=== PATIENT | male | born 1960 | race Caucasian/White ===

== ENCOUNTER 2018-01-28 15:11 | Emergency (ER) | payer OTHER ==
[~2018-01-28] VITALS: Ht 185.4 cm; Wt 129.1 kg
[2018-01-28] MEDS ORDERED: LIDODERM 5% P1 PATCH TD (17:20)
[2018-01-28] MEDS ORDERED: FLEXERIL10 MG PO (17:20)
[2018-01-28] MEDS ORDERED: MOTRIN800 MG PO (17:20)
[2018-01-28 18:18] VITALS: BP 146/83
== END 2018-01-28 18:18 | disposition home or self-care (01) ==
LOC: EME 15:11
DX: S29.012A Strain of muscle and tendon of back wall of thorax, initial encounter (principal); M48.54XA Collapsed vertebra, not elsewhere classified, thoracic region, initial encounter for fracture; W18.30XA Fall on same level, unspecified, initial encounter; I10 Essential (primary) hypertension; Z87.820 Personal history of traumatic brain injury; Z86.69 Personal history of other diseases of the nervous system and sense organs
CPT/HCPCS: 71046; 72070; 99281; 99283

== ENCOUNTER 2018-02-10 12:28 | Inpatient (IN) | payer OTHER ==
[~2018-02-10] VITALS: Ht 185.4 cm; Wt 135.7 kg
[2018-02-10] VITALS (8 sets, daily range): BP systolic 123–156; BP diastolic 73–86
[~2018-02-10 12:28] MED LIST: FLEXERIL10 MG PO; LIDODERM 5% P1 PATCH TD; MOTRIN800 MG PO
[2018-02-10 15:50] LABS: BASOPHIL (%) 0 % (0-1); EOSINOPHIL (%) 5.4 % (0-5); EOSINOPHIL COUNT 0.2 K/uL (0-0.3); HEMATOCRIT 19.1 % (38.0-50.0); HEMOGLOBIN 5.7 G/DL (12.5-16.6); LYMPHOCYTE COUNT 1.2 K/uL (1.0-2.8); MCH 26.4 PG (29.0-34.0); MCHC 29.8 G/DL (30.0-36.0); MCV 88.4 FL (86-99); MONOCYTE (%) 10.3 % (3-12); MONOCYTE COUNT 0.4 K/uL (0-0.8); NEUTROPHIL (%) 52.3 % (45-76); PLATELET COUNT 69 K/uL (156-360); RBC DIS.WIDTH-CV 25.3 % (11.8-14.6); RBC DIS.WIDTH-SD 80.4 % (39-53); RED BLOOD COUNT 2.16 M/uL (4.00-5.50); WHITE BLOOD COUNT 3.9 K/uL (4.1-10.2)
[2018-02-10 15:51] LABS: ALBUMIN 2.9 g/dL (3.2-4.8); CHLORIDE 104 mEq/L (99-109); POTASSIUM 5.8 mEq/L (3.7-5.4); SODIUM 138 mEq/L (136-147)
[2018-02-10 15:53] LABS: INTER. NORMALIZED RATIO 1.3
[2018-02-10 15:54] LABS: GLUCOSE 100 mg/dL (70-99); TOTAL PROTEIN > 12.3 g/dL (6.4-8.3)
[2018-02-10 15:56] LABS: PTT 27.5 SEC (25-37); TOTAL BILIRUBIN 0.3 mg/dL (0.0-1.0)
[2018-02-10 15:57] LABS: ALKALINE PHOSPHATASE 121 IU/L (3-129)
[2018-02-10 15:58] LABS: CREATININE 12.9 mg/dL (0.6-1.3); GFR ESTIMATE (CALCULATED) 4 mL/min/ (58.99-99999)
[2018-02-10 15:59] LABS: AST (GOT) 7 IU/L (2-34)
[2018-02-10 16:00] LABS: ALT (GPT) 6 IU/L (3-49)
[2018-02-10 16:01] LABS: LIPASE 100 U/L (1.0-51.0)
[2018-02-10 16:08] LABS: UREA NITROGEN (BUN) 123 mg/dL (9-23)
[2018-02-10 16:46] LABS: TROP-I INTERPRETATION NEGATIVE; TROPONIN-I 0.02 ng/mL (0.0-0.30)
[2018-02-10 19:56] LABS: APPEARANCE SL.HAZY ((CLEAR)); BILIRUBIN NEGATIVE; BLOOD NEGATIVE; COLOR YELLOW ((YELLOW)); GLUCOSE (STRIP) NEGATIVE; KETONES NEGATIVE; LEUKOCYTES NEGATIVE; NITRITE NEGATIVE; PROTEIN (STRIP) 30; SPECIFIC GRAVITY 1.013 (1.000-1.030); UROBILINOGEN 0.2 MG/DL (0.2-1.0)
[2018-02-10] MEDS ORDERED: LIDODERM 5% P1 PATCH TD (19:58)
[2018-02-10] MEDS ORDERED: MOTRIN800 MG PO (19:58)
[2018-02-10] MEDS ORDERED: TRUSOPT 2%200 DROP/2 BOTH EYES (19:59)
[2018-02-10] MEDS ORDERED: AVAPRO300 MG PO (20:00)
[2018-02-10] MEDS ORDERED: CENTRUM SILVER1 EAC5 PO (20:00)
[2018-02-10] MEDS ORDERED: ALPHAGAN 0100 DROP/5 BOTH EYES (20:00)
[2018-02-10] MEDS ORDERED: TEGRETOL-XR,CA400 MG PO (20:00)
[2018-02-10] MEDS ORDERED: CARBAMAZEPINE200 MG PO (20:01)
[2018-02-10] MEDS ORDERED: NORVASC2.5 MG PO (20:01)
[2018-02-10] MEDS ORDERED: HYDROCHLOROTHIA25 MG PO (20:01)
[2018-02-10] MEDS ORDERED: LO-DOSE ASPIRIN81 M1 PO (20:02)
[2018-02-10] MEDS ORDERED: COREG25 M1 PO (20:02)
[2018-02-10] MEDS ORDERED: IRON325 M1 PO (20:02)
[2018-02-10] MEDS ORDERED: NIZORAL 2% CREA15 GM TP (20:02)
[2018-02-10 20:33] LABS: BACTERIA NONE SEEN /HPF; EPITHELIAL CELLS 1+ /HPF; HYALINE CASTS 0-5 /LPF; MUCUS TRACE /LPF; RED BLOOD CELLS 0-5 /HPF (0-5); WHITE BLOOD CELLS 0-5 /HPF (0-5)
[2018-02-10 20:57] LABS: UCUL ADDED? NO
[2018-02-11] VITALS (14 sets, daily range): BP systolic 134–194; BP diastolic 79–96
[2018-02-11 00:01] LABS: CHLORIDE 108 mEq/L (99-109); POTASSIUM 5.4 mEq/L (3.7-5.4); SODIUM 139 mEq/L (136-147)
[2018-02-11 00:03] LABS: GLUCOSE 121 mg/dL (70-99)
[2018-02-11 00:07] LABS: CREATININE 11.9 mg/dL (0.6-1.3); GFR ESTIMATE (CALCULATED) 5 mL/min/ (58.99-99999)
[2018-02-11 00:09] LABS: UREA NITROGEN (BUN) 121 mg/dL (9-23)
[2018-02-11 02:01] LABS: URINE OSMOLALITY 337 MOSM/KG (300-1100)
[2018-02-11 05:48] LABS: A/G RATIO 0.3 (1.1-1.8); ALBUMIN 2.6 G/DL (3.4-5.0); GLOBULINS 8.5 G/DL (2.3-3.5)
[2018-02-11 06:02] LABS: HEMATOCRIT 20.9 % (38.0-50.0); MCH 26.9 PG (29.0-34.0); MCHC 30.1 G/DL (30.0-36.0); MCV 89.3 FL (86-99); RBC DIS.WIDTH-CV 22.3 % (11.8-14.6); RBC DIS.WIDTH-SD 73.2 % (39-53); RED BLOOD COUNT 2.34 M/uL (4.00-5.50); WHITE BLOOD COUNT 3.1 K/uL (4.1-10.2)
[2018-02-11 06:03] LABS: HEMOGLOBIN 6.3 G/DL (12.5-16.6)
[2018-02-11 06:09] LABS: URINE TOTAL PROTEIN 216 MG/DL (0-10)
[2018-02-11 06:13] LABS: TOTAL PROTEIN 11.1 G/DL (6.4-8.2)
[2018-02-11 06:41] LABS: HEMATOLOGY COMMENT 1 SN; PLAT.SUFFICIENCY DECREASED
[2018-02-11 06:42] LABS: PLATELET COUNT 46 K/uL (156-360)
[2018-02-11 07:52] LABS: INTACT PARATHYROID HORMONE 24 pg/mL (10-69)
[2018-02-11 14:47] LABS: THYROTROPIN (TSH) 0.22 MIU/L (0.4-5.5)
[2018-02-11 14:49] LABS: HEMATOCRIT 21.1 % (38.0-50.0); HEMOGLOBIN 6.5 G/DL (12.5-16.6); MCH 26.6 PG (29.0-34.0); MCHC 30.8 G/DL (30.0-36.0); MCV 86.5 FL (86-99); RBC DIS.WIDTH-CV 21.9 % (11.8-14.6); RBC DIS.WIDTH-SD 69.5 % (39-53); RED BLOOD COUNT 2.44 M/uL (4.00-5.50); WHITE BLOOD COUNT 2.8 K/uL (4.1-10.2)
[2018-02-11 14:52] LABS: FERRITIN 142 NG/ML (22-322)
[2018-02-11 14:53] LABS: PLAT.SUFFICIENCY VERY DECREASED; PLATELET COUNT 50 K/uL (156-360)
[2018-02-11 14:57] LABS: FOLIC ACID (FOLATE) 16.4 NG/ML (5.0-22.0)
[2018-02-11 16:00] LABS: LACTATE DEHYDROGENASE 62 IU/L (20-246)
[2018-02-11 16:10] LABS: IMMUNOGLOBULIN G 340 MG/DL (650-1600); IMMUNOGLOBULIN M 26 MG/DL (50-300)
[2018-02-11 16:31] LABS: IRON 86 MCG/DL (35-150); TRANSFERRIN (TIBC) 130.5 mg/dL (215-380); TRANSFERRIN SATUR. 66 % (20-55)
[2018-02-11 16:45] LABS: ABS NEUTROPHIL COUNT 1.9; ANISOCYTOSIS 1+; ATYPICAL LYMPHOCYTE 1.8 %; EOSINOPHIL ABS CT 0.1; EOSINOPHILS 4.5 % (0-5.0); HYPOCHROMASIA 1+; LYMPHOCYTES 15.2 % (15.0-45.0); MONOCYTES 10.7 % (0-9.0); SEG.NEUTROPHILS 67.8 % (46.0-76.0)
[2018-02-12] VITALS (7 sets, daily range): BP systolic 141–176; BP diastolic 84–99
[2018-02-12 05:49] LABS: BASOPHIL (%) 0.4 % (0-1); EOSINOPHIL (%) 4.9 % (0-5); EOSINOPHIL COUNT 0.1 K/uL (0-0.3); HEMATOCRIT 25.6 % (38.0-50.0); IMMATURE GRANULOCYTE (%) 0.4 % (0.0-0.7); LYMPHOCYTE (%) 30.5 % (15-42); LYMPHOCYTE COUNT 0.7 K/uL (1.0-2.8); MCH 26.7 PG (29.0-34.0); MCHC 31.3 G/DL (30.0-36.0); MCV 85.3 FL (86-99); MONOCYTE (%) 10.2 % (3-12); MONOCYTE COUNT 0.2 K/uL (0-0.8); NEUTROPHIL (%) 53.6 % (45-76); NEUTROPHIL COUNT 1.2 K/uL (1.8-6.4); RBC DIS.WIDTH-CV 20.1 % (11.8-14.6); RBC DIS.WIDTH-SD 62.5 % (39-53); WHITE BLOOD COUNT 2.3 K/uL (4.1-10.2)
[2018-02-12 06:48] LABS: C4 COMPLEMENT 24 MG/DL (10-40)
[2018-02-12 07:00] LABS: PLAT.SUFFICIENCY VERY DECREASED; PLATELET COUNT 46 K/uL (156-360)
[2018-02-12 07:31] LABS: ALBUMIN 2.6 G/DL (3.2-4.8); ALKALINE PHOSPHATASE 87 IU/L (3-129); ALT (GPT) 4 IU/L (3-49); AST (GOT) < 7 IU/L (2-34); CHLORIDE 103 MEQ/L (99-109); GLUCOSE 108 mg/dL (70-99); MAGNESIUM 2.3 mg/dl (1.3-2.7); PHOSPHORUS 5.4 mg/dL (2.5-4.9); SODIUM 139 MEQ/L (136-147); TOTAL BILIRUBIN 0.2 MG/DL (0.0-1.0); TOTAL PROTEIN 10.7 G/DL (6.4-8.3)
[2018-02-12 07:35] LABS: CREATININE 9.4 MG/DL (0.6-1.3); GFR ESTIMATE (CALCULATED) 6 mL/min/ (58.99-99999); POTASSIUM 4.3 MEQ/L (3.7-5.4); UREA NITROGEN (BUN) 109 mg/dL (9-23)
[2018-02-12 10:44] LABS: HEPATITIS B SURFACE ANTIGEN Nonreactive
[2018-02-12 10:45] LABS: ANTI-HEPATITIS A VIRUS (IGM) Nonreactive; HEPATITIS C ANTIBODY Nonreactive
[2018-02-12 10:47] LABS: ANTI-HEPATITIS B CORE (IGM) Nonreactive
[2018-02-12 11:23] LABS: ALPHA-1 GLOBULIN 0.29 G/DL (0.15-0.40); BETA-GLOBULIN 6.62 G/DL (0.65-1.15)
[2018-02-13 03:00] VITALS: BP 168/98
[2018-02-13 06:14] LABS: CHLORIDE 102 MEQ/L (99-109); GFR ESTIMATE (CALCULATED) 8 mL/min/ (58.99-99999); GLUCOSE 88 mg/dL (70-99); POTASSIUM 4.4 MEQ/L (3.7-5.4); SODIUM 140 MEQ/L (136-147); UREA NITROGEN (BUN) 93 mg/dL (9-23)
[2018-02-13 06:23] LABS: BASOPHIL (%) 0.3 % (0-1); EOSINOPHIL (%) 3.9 % (0-5); EOSINOPHIL COUNT 0.1 K/uL (0-0.3); HEMATOCRIT 26.7 % (38.0-50.0); HEMOGLOBIN 8.4 G/DL (12.5-16.6); LYMPHOCYTE (%) 27.6 % (15-42); LYMPHOCYTE COUNT 0.8 K/uL (1.0-2.8); MCH 26.5 PG (29.0-34.0); MCHC 31.5 G/DL (30.0-36.0); MCV 84.2 FL (86-99); MONOCYTE (%) 11.8 % (3-12); MONOCYTE COUNT 0.4 K/uL (0-0.8); NEUTROPHIL (%) 56.4 % (45-76); NEUTROPHIL COUNT 1.7 K/uL (1.8-6.4); RBC DIS.WIDTH-CV 19.9 % (11.8-14.6); RBC DIS.WIDTH-SD 62.1 % (39-53); RED BLOOD COUNT 3.17 M/uL (4.00-5.50)
[2018-02-13 06:28] LABS: CREATININE 7.1 MG/DL (0.6-1.3)
[2018-02-13 06:46] LABS: IMM.PLATELET FRACTION 4.4 (1-7); PLAT.SUFFICIENCY DECREASED; PLATELET COUNT 38 K/uL (156-360)
[2018-02-13 08:02] VITALS: BP 195/93
[2018-02-13 11:47] VITALS: BP 173/93
[2018-02-13 15:55] VITALS: BP 136/77
[2018-02-13 19:27] VITALS: BP 155/91
[2018-02-13 23:10] VITALS: BP 155/85
[2018-02-14 04:44] VITALS: BP 157/89
[2018-02-14 05:54] LABS: BASOPHIL (%) 0.4 % (0-1); EOSINOPHIL (%) 4.9 % (0-5); EOSINOPHIL COUNT 0.1 K/uL (0-0.3); HEMOGLOBIN 7.9 G/DL (12.5-16.6); LYMPHOCYTE (%) 28.5 % (15-42); LYMPHOCYTE COUNT 0.8 K/uL (1.0-2.8); MCH 26.1 PG (29.0-34.0); MCHC 30.4 G/DL (30.0-36.0); MCV 85.8 FL (86-99); MONOCYTE (%) 14.4 % (3-12); MONOCYTE COUNT 0.4 K/uL (0-0.8); NEUTROPHIL (%) 51.8 % (45-76); NEUTROPHIL COUNT 1.4 K/uL (1.8-6.4); RBC DIS.WIDTH-CV 20.2 % (11.8-14.6); RBC DIS.WIDTH-SD 64.1 % (39-53); RED BLOOD COUNT 3.03 M/uL (4.00-5.50); WHITE BLOOD COUNT 2.6 K/uL (4.1-10.2)
[2018-02-14 06:16] LABS: CHLORIDE 105 MEQ/L (99-109); CREATININE 5.8 MG/DL (0.6-1.3); GFR ESTIMATE (CALCULATED) 11 mL/min/ (58.99-99999); GLUCOSE 81 mg/dL (70-99); POTASSIUM 4.7 MEQ/L (3.7-5.4); SODIUM 141 MEQ/L (136-147); UREA NITROGEN (BUN) 84 mg/dL (9-23)
[2018-02-14 06:35] LABS: IMM.PLATELET FRACTION 3.1 (1-7); PLAT.SUFFICIENCY VERY DECREASED; PLATELET COUNT 34 K/uL (156-360)
[2018-02-14 09:58] VITALS: BP 158/82
[2018-02-14 11:29] VITALS: BP 145/77
[2018-02-14 16:23] VITALS: BP 134/80
[2018-02-14 19:33] VITALS: BP 159/86
[2018-02-15] VITALS (8 sets, daily range): BP systolic 140–191; BP diastolic 75–138
[2018-02-15 10:33] LABS: CHLORIDE 108 mEq/L (99-109); POTASSIUM 4.7 mEq/L (3.7-5.4); SODIUM 143 mEq/L (136-147)
[2018-02-15 10:38] LABS: GFR ESTIMATE (CALCULATED) 14 mL/min/ (58.99-99999)
[2018-02-15 10:39] LABS: CREATININE 4.7 mg/dL (0.6-1.3); GLUCOSE 109 mg/dL (70-99); UREA NITROGEN (BUN) 69 mg/dL (9-23)
[2018-02-15 10:48] LABS: HEMATOCRIT 25.2 % (38.0-50.0); MCH 27.1 PG (29.0-34.0); MCHC 31.7 G/DL (30.0-36.0); MCV 85.4 FL (86-99); RBC DIS.WIDTH-CV 19.9 % (11.8-14.6); RED BLOOD COUNT 2.95 M/uL (4.00-5.50); WHITE BLOOD COUNT 2.4 K/uL (4.1-10.2)
[2018-02-15 11:20] LABS: IMM.PLATELET FRACTION 4.1 (1-7); PLAT.SUFFICIENCY VERY DECREASED; PLATELET COUNT 30 K/uL (156-360)
[2018-02-16] VITALS (12 sets, daily range): BP systolic 144–193; BP diastolic 69–120
[2018-02-16 06:39] LABS: HEMATOCRIT 27.2 % (38.0-50.0); HEMOGLOBIN 8.4 G/DL (12.5-16.6); MCH 26.9 PG (29.0-34.0); MCHC 30.9 G/DL (30.0-36.0); MCV 87.2 FL (86-99); RBC DIS.WIDTH-CV 20.4 % (11.8-14.6); RBC DIS.WIDTH-SD 64.5 % (39-53); RED BLOOD COUNT 3.12 M/uL (4.00-5.50); WHITE BLOOD COUNT 2.4 K/uL (4.1-10.2)
[2018-02-16 06:51] LABS: CHLORIDE 105 MEQ/L (99-109); GLUCOSE 92 mg/dL (70-99); POTASSIUM 4.1 MEQ/L (3.7-5.4); SODIUM 142 MEQ/L (136-147); UREA NITROGEN (BUN) 54 mg/dL (9-23)
[2018-02-16 06:54] LABS: CREATININE 3.8 MG/DL (0.6-1.3); GFR ESTIMATE (CALCULATED) 17 mL/min/ (58.99-99999); MAGNESIUM 1.7 mg/dl (1.3-2.7)
[2018-02-16 07:07] LABS: PLAT.SUFFICIENCY VERY DECREASED
[2018-02-16 07:13] LABS: PLATELET COUNT 26 K/uL (156-360)
[2018-02-16 16:47] LABS: NUMBER OF MARKERS 24; SPECIMEN TYPE BONE MARROW; SPECIMEN VIABILITY 99
[2018-02-17 05:29] VITALS: BP 146/71
[2018-02-17 06:03] LABS: HEMATOCRIT 27.2 % (38.0-50.0); HEMOGLOBIN 8.2 G/DL (12.5-16.6); MCH 26.5 PG (29.0-34.0); MCHC 30.1 G/DL (30.0-36.0); MCV 87.7 FL (86-99); RBC DIS.WIDTH-CV 20.2 % (11.8-14.6); RBC DIS.WIDTH-SD 64.3 % (39-53); WHITE BLOOD COUNT 3.1 K/uL (4.1-10.2)
[2018-02-17 06:24] LABS: CHLORIDE 104 MEQ/L (99-109); CREATININE 3.3 MG/DL (0.6-1.3); GFR ESTIMATE (CALCULATED) 20 mL/min/ (58.99-99999); GLUCOSE 88 mg/dL (70-99); POTASSIUM 4.2 MEQ/L (3.7-5.4); SODIUM 140 MEQ/L (136-147); UREA NITROGEN (BUN) 51 mg/dL (9-23)
[2018-02-17 07:00] VITALS: BP 160/86
[2018-02-17 07:01] LABS: IMM.PLATELET FRACTION 2.8 (1-7); PLAT.SUFFICIENCY VERY DECREASED
[2018-02-17 07:07] LABS: PLATELET COUNT 21 K/uL (156-360)
[2018-02-17 11:11] VITALS: BP 114/72
[2018-02-17 15:20] VITALS: BP 114/56
[2018-02-17 20:00] VITALS: BP 129/77
[2018-02-17 23:59] VITALS: BP 135/79
[2018-02-18] VITALS (13 sets, daily range): BP systolic 125–147; BP diastolic 59–84
[2018-02-18 06:37] LABS: HEMOGLOBIN 7.4 G/DL (12.5-16.6); MCH 26.2 PG (29.0-34.0); MCHC 29.6 G/DL (30.0-36.0); MCV 88.7 FL (86-99); RED BLOOD COUNT 2.82 M/uL (4.00-5.50); WHITE BLOOD COUNT 2.3 K/uL (4.1-10.2)
[2018-02-18 06:38] LABS: CHLORIDE 103 MEQ/L (99-109); CREATININE 3.3 MG/DL (0.6-1.3); GFR ESTIMATE (CALCULATED) 20 mL/min/ (58.99-99999); GLUCOSE 106 mg/dL (70-99); POTASSIUM 4.1 MEQ/L (3.7-5.4); SODIUM 139 MEQ/L (136-147); UREA NITROGEN (BUN) 60 mg/dL (9-23)
[2018-02-18 07:38] LABS: IMM.PLATELET FRACTION 4.8 (1-7); PLAT.SUFFICIENCY VERY DECREASED
[2018-02-18 07:42] LABS: PLATELET COUNT 20 K/uL (156-360)
[2018-02-18 11:19] LABS: LACTATE DEHYDROGENASE 111 IU/L (20-246)
[2018-02-19 06:11] LABS: HEMATOCRIT 29.3 % (38.0-50.0); MCH 27.3 PG (29.0-34.0); MCHC 30.7 G/DL (30.0-36.0); MCV 88.8 FL (86-99); RBC DIS.WIDTH-CV 18.8 % (11.8-14.6); RBC DIS.WIDTH-SD 60.6 % (39-53); WHITE BLOOD COUNT 3.4 K/uL (4.1-10.2)
[2018-02-19 06:15] LABS: CHLORIDE 103 MEQ/L (99-109); CREATININE 2.9 MG/DL (0.6-1.3); GFR ESTIMATE (CALCULATED) 24 mL/min/ (58.99-99999); GLUCOSE 85 mg/dL (70-99); POTASSIUM 4.2 MEQ/L (3.7-5.4); SODIUM 141 MEQ/L (136-147); UREA NITROGEN (BUN) 60 mg/dL (9-23)
[2018-02-19 06:54] LABS: BASOPHIL (%) 0 % (0-1); EOSINOPHIL (%) 1.8 % (0-5); EOSINOPHIL COUNT 0.1 K/uL (0-0.3); IMM.PLATELET FRACTION 4.2 (1-7); IMMATURE GRANULOCYTE (%) 0.6 % (0.0-0.7); LYMPHOCYTE (%) 32.1 % (15-42); LYMPHOCYTE COUNT 1.1 K/uL (1.0-2.8); MONOCYTE (%) 7.4 % (3-12); MONOCYTE COUNT 0.3 K/uL (0-0.8); NEUTROPHIL (%) 58.1 % (45-76); PLAT.SUFFICIENCY DECREASED
[2018-02-19 07:15] LABS: PLATELET COUNT 38 K/uL (156-360)
[2018-02-19 07:48] VITALS: BP 157/91
[2018-02-19 08:49] LABS: URINE TOTAL PROTEIN 144 MG/DL (0-10)
[2018-02-19 15:42] VITALS: BP 121/59
[2018-02-19 21:10] VITALS: BP 168/82
[2018-02-19 23:50] VITALS: BP 122/70
[2018-02-20 05:51] LABS: CHLORIDE 101 MEQ/L (99-109); CREATININE 2.6 MG/DL (0.6-1.3); GFR ESTIMATE (CALCULATED) 27 mL/min/ (58.99-99999); GLUCOSE 80 mg/dL (70-99); MAGNESIUM 1.7 mg/dl (1.3-2.7); POTASSIUM 4.2 MEQ/L (3.7-5.4); SODIUM 139 MEQ/L (136-147); UREA NITROGEN (BUN) 60 mg/dL (9-23)
[2018-02-20 06:06] LABS: PHOSPHORUS 3.4 mg/dL (2.5-4.9)
[2018-02-20 07:31] VITALS: BP 144/68
[2018-02-20 07:32] LABS: HEMATOCRIT 31.3 % (38.0-50.0); HEMOGLOBIN 9.7 G/DL (12.5-16.6); MCH 27.4 PG (29.0-34.0); MCV 88.4 FL (86-99); RBC DIS.WIDTH-SD 61.8 % (39-53); RED BLOOD COUNT 3.54 M/uL (4.00-5.50); WHITE BLOOD COUNT 2.8 K/uL (4.1-10.2)
[2018-02-20 07:57] LABS: BASOPHIL (%) 0.4 % (0-1); EOSINOPHIL (%) 2.5 % (0-5); EOSINOPHIL COUNT 0.1 K/uL (0-0.3); HEMATOLOGY COMMENT 1 SMEAR COMPATIBLE; IMMATURE GRANULOCYTE (%) 0.7 % (0.0-0.7); LYMPHOCYTE (%) 37.6 % (15-42); LYMPHOCYTE COUNT 1.1 K/uL (1.0-2.8); MONOCYTE (%) 9.3 % (3-12); MONOCYTE COUNT 0.3 K/uL (0-0.8); NEUTROPHIL (%) 49.5 % (45-76); NEUTROPHIL COUNT 1.4 K/uL (1.8-6.4); PLAT.SUFFICIENCY DECREASED; PLATELET CLUMPS PRESENT - PLATELET COUNT APPEARS DECREASED; PLATELET COUNT UNABLE TO REPORT K/uL (156-360)
[2018-02-20] MEDS ORDERED: APRESOLINE10 MG PO (13:41)
[2018-02-20] MEDS ORDERED: NIFEDIPINE ER90 MG PO (13:42)
[2018-02-20] MEDS ORDERED: ALLOPURINOL100 MG PO (13:45)
[2018-02-20] MEDS ORDERED: DEXAMETHASONE4 MG PO (13:45)
[2018-02-20] MEDS ORDERED: CALCIUM CARB1 TABLET PO (14:00)
[2018-02-20 16:39] VITALS: BP 155/82
[2018-02-20] MEDS ORDERED: MORPHINE SULFAT15 MG PO (17:34)
[2018-02-20] MEDS ORDERED: PERCOCET 5/31 TABLET PO (17:35)
[2018-02-24 15:49] LABS: Neutrophil Cytoplasmic Aby Negative
== END 2018-02-20 18:13 | DRG 841 ==
LOC: EME 12:28 → 4EAST 20:24 → EDOF 20:24 → 5EAST 20:24 → ENRESERV 20:27 → 4EAST 21:13 → CANRESERV 02-13 15:53 → ENRESERV 02-13 15:53 → ENRESERVTM 02-15 15:23 → 5EAST 02-15 16:24 → ENPENDDIS 02-20 18:00 → 5EAST 02-20 18:13
PROVIDERS: Anesthesiology; Hospitalist; Internal Medicine; Internal Medicine Nephrology; Physician Assistant
DX: C90.00 Multiple myeloma not having achieved remission (principal); M84.58XA Pathological fracture in neoplastic disease, other specified site, initial encounter for fracture; D61.818 Other pancytopenia; N17.9 Acute kidney failure, unspecified; H54.62 Unqualified visual loss, left eye, normal vision right eye; I10 Essential (primary) hypertension; I83.028 Varicose veins of left lower extremity with ulcer other part of lower leg; L97.821 Non-pressure chronic ulcer of other part of left lower leg limited to breakdown of skin; L89.892 Pressure ulcer of other site, stage 2; Z87.820 Personal history of traumatic brain injury; G81.94 Hemiplegia, unspecified affecting left nondominant side; E87.2 Acidosis; E87.5 Hyperkalemia; E11.622 Type 2 diabetes mellitus with other skin ulcer; Z98.84 Bariatric surgery status; G40.909 Epilepsy, unspecified, not intractable, without status epilepticus; E79.0 Hyperuricemia without signs of inflammatory arthritis and tophaceous disease; H40.9 Unspecified glaucoma; M20.42 Other hammer toe(s) (acquired), left foot; E66.9 Obesity, unspecified; Z68.37 Body mass index [BMI] 37.0-37.9, adult; R41.3 Other amnesia; E83.39 Other disorders of phosphorus metabolism
CPT/HCPCS: 70450; 71250; 72128; 72131; 74176; 76770; 77012; 78306; 80048; 80048 91; 80053; 80074; 81003; 82232; 82272; 82330; 82570; 82575; 82607; 82728; 82746; 82784; 82948; 83540; 83605; 83615; 83690; 83735; 83883 90; 83935; 83970; 84100; 84165; 84166; 84300; 84439; 84443; 84466; 84484; 84550; 85007; 85025; 85027; 85049; 85060; 85610; 85651; 85730; 86021 90; 86038; 86160; 86334; 86335; 86850; 86900; 86901; 86920; 88271 90; 88271 91; 88275 90; 88275 91; 93005; 94799; 97530 GO; 97530 GP; 99281; 99283; A6260; A9503; J1644; J1940; J2270; J2405; J3010; J7030; J7070; J8540; P9016; P9037